=== PATIENT | female | born 1995 | race American Indian/Alaskan Native ===

== ENCOUNTER 2017-12-15 18:57 | Emergency (ER) | payer OTHER ==
[2017-12-15 19:29] VITALS: BP 110/70
[2017-12-15 20:21] LABS: Bilirubin,Urine MOD (Negative); Blood,Urine NEG (Negative); Color,Urine Amber (Yellow); Mucus,Urine 2+ /HPF
[2017-12-15 20:22] LABS: HCG Qualitative,Urine Negative (Negative)
[2017-12-15 20:25] LABS: Ictotest,Urine Positive (Negative)
== END 2017-12-15 23:35 | disposition left against medical advice (07) ==
LOC: ED 18:57
DX: M54.9 Dorsalgia, unspecified (principal); M25.512 Pain in left shoulder; M25.511 Pain in right shoulder; Z53.21 Procedure and treatment not carried out due to patient leaving prior to being seen by health care provider
CPT/HCPCS: 81001; 81025